=== PATIENT | male | born 1990 | race Caucasian/White ===

== ENCOUNTER 2024-10-01 00:05 | Emergency (ER) | payer SELFPAY ==
[~2024-10-01] VITALS: Ht 167.6 cm; Wt 61.2 kg
[2024-10-01 03:33] VITALS: BP 122/68; TEMP 98.1; O2SAT 98
== END 2024-10-01 03:35 | disposition home or self-care (01) ==
LOC: ER 00:09
DX: Z20.2 Contact with and (suspected) exposure to infections with a predominantly sexual mode of transmission (principal)